=== PATIENT | female | born 1985 | race Caucasian/White ===

== ENCOUNTER 2020-10-07 19:16 | Observation (INO) | payer BC, OTHER ==
[2020-10-07] MEDS ORDERED: HEPARIN SODIUM,PORCINE 5,000 UNIT/ML 1 ML VIAL IV PRN (19:28)
[2020-10-07] MEDS ORDERED: HEPARIN SOD,PORK IN 0.45% NACL 25,000 UNIT in 0.45% NACL 1 250ML.BAG IV SCH (19:30)
--- NOTE | 2020-10-07 19:37 | ED ---
Extremity Problem HPI - General Chief complaint: Extremity Problem,Nontraumatic Stated complaint: R arm swelling Time Seen by Provider: 10/07/20 19:19 Source: patient Mode of arrival: EMS Limitations: no limitations - History of Present Illness Initial comments: 35 year-old female patient presents to the emergency department as a transfer for subclavian DVT. Patient states that she worked out her shoulders at the gym a couple of days ago. states she started having pain and swelling to the right arm. States it is mildly discolored. States she went to the hospital to have it evaluated had ultrasound and was diagnosed with a DVT. She was sent here for further evaluation by vascular surgery. Patient states that over the last week she has been more short of breath while working out. States that she is also been feeling "weaker". Denies any cough or congestion. Denies fever or chills. Denies history of blood clots. Denies use of hormonal medications or control. Patient denies any recent rash, fever, chills, chest pain, abdominal pain, nausea, vomiting, diarrhea, constipation, back pain, numbness, tingling, dizziness, hematuria, dysuria, urinary urgency, urinary frequency, headache, visual changes, or any other complaints. - Related Data Home Medications Medication Instructions Recorded Confirmed Levothyroxine Sodium [Synthroid] 100 mcg PO DAILY 08/26/15 10/07/20 ALPRAZolam [Xanax] 0.25 mg PO DAILY PRN 10/07/20 10/07/20 ARIPiprazole [Abilify] 5 mg PO DAILY 10/07/20 10/07/20 Lisdexamfetamine Dimesylate 50 mg PO QAM 10/07/20 10/07/20 [Vyvanse] Oxybutynin Chloride 5 mg PO TID PRN 10/07/20 10/07/20 Venlafaxine HCl ER [Effexor Xr] 150 mg PO DAILY 10/07/20 10/07/20 Allergies Allergy/AdvReac Type Severity Reaction Status Date / Time codeine Allergy Hallucinati Verified 10/07/20 19:20 ons Review of Systems ROS Statement: Those systems with pertinent positive or pertinent negative responses have been documented in the HPI. ROS Other: All systems not noted in ROS Statement are negative. Past Medical History Past Medical History: Thyroid Disorder Additional Past Medical History / Comment(s): anxiety History of Any Multi-Drug Resistant Organisms: None Reported Past Surgical History: No Surgical Hx Reported Past Anesthesia/Blood Transfusion Reactions: No Reported Reaction Past Psychological History: ADD/ADHD, Anxiety, Depression Smoking Status: Current every day smoker Past Alcohol Use History: Occasional Past Drug Use History: Marijuana - Past Family History Mother Family Medical History: No Reported History General Exam Limitations: no limitations General appearance: alert, in no apparent distress, other (this is a well- developed, well-nourished adult female patient in no acute distress.) ENT exam: Present: normal exam, normal oropharynx, mucous membranes moist Respiratory exam: Present: normal lung sounds bilaterally. Absent: respiratory distress, wheezes, rales, rhonchi, stridor Cardiovascular Exam: Present: regular rate, normal rhythm, normal heart sounds. Absent: systolic murmur, diastolic murmur, rubs, gallop, clicks GI/Abdominal exam: Present: soft, normal bowel sounds. Absent: distended, tenderness, guarding, rebound, rigid Neurological exam: Present: alert, oriented X3, CN II-XII intact Psychiatric exam: Present: normal affect, normal mood Skin exam: Present: warm, dry, intact, normal color. Absent: rash Course Vital Signs 10/07/20 10/07/20 19:21 20:05 Temperature 98.7 F Pulse Rate 96 92 Respiratory 18 18 Rate Blood Pressure 136/89 122/88 O2 Sat by Pulse 97 99 Oximetry Medical Decision Making - Medical Decision Making 35-year-old female patient presents to the emergency department today for evaluation after transfer from [facility] for DVT to the right subclavian. Physical examination did reveal generalized swelling to the right upper extremity, there is also reddish discoloration with delayed cap refill. Patient denied any pain to the extremity. Review of records from [facility] showed relatively normal lab values. As she did have ultrasound of the arm and showed a chronic DVT partially obstructing the right subclavian. Did perform CT chest angiography here due to increased shortness of breath over the last week and this was negative for pulmonary embolism. Patient is on high-dose heparin. To be admitted to the hospital for further evaluation by vascular tomorrow. Patient is agreeable with this plan. Case discussed with Dr. Thomas. - Radiology Data Radiology results: report reviewed, image reviewed ultrasound report from [facility] was reviewed and showed a partial occlusion of the right subclavian vein with chronic DVT CT chest angiography for pulmonary embolism was obtained. Report is reviewed in its entirety. Impression by Dr. Chavarria shows no evidence of pulmonary embolism. Negative exam. Disposition Clinical Impression: Right subclavian vein thrombosis Disposition: ADMITTED IP TO THIS [facility] Condition: Serious Referrals: Yuliya Mejia MD [Primary Care Provider] - 1-2 days Decision to Admit Reason: Admit from EC Decision Date: 10/07/20 Decision Time: 20:30
--- NOTE | 2020-10-07 20:17 | CT ---
EXAMINATION TYPE: CT chest angio for PE DATE OF EXAM: 10/07/2020 COMPARISON: None HISTORY: SOB, hx of subclavian DVT CT DLP: 242.8 mGycm Automated exposure control for dose reduction was used. CONTRAST: Performed with IV Contrast, patient injected with 54cc mL of Isovue 370. There are 3-D post processed images. The lungs are clear of infiltrate. There is no evidence of a pulmonary mass. There is no pleural effu missy. There is no pericardial effusion. Heart size is normal. Mediastinum is normal. There are no hil ar masses. Thoracic aorta is intact. There is no evidence of aneurysm or dissection. There is normal contrast opacification of the pulmonary arteries. There are no filling defects. The bony thorax is intact. IMPRESSION: No evidence of pulmonary embolism. Negative exam.
[2020-10-07] MEDS ORDERED: ONDANSETRON 4 MG/2 ML VIAL IVP PRN (20:28)
[2020-10-07] MEDS ORDERED: NALOXONE 0.4 MG/ML 1 ML VIAL IV PRN (20:28)
[2020-10-07] MEDS ORDERED: SODIUM CHLORIDE 0.9% 1,000 ML IV SCH (20:30)
[2020-10-07 23:51] VITALS: RESP 16
[2020-10-08 06:22] LABS: Basophils # (A) 0.1 k/uL (0-0.2); Basophils % (A) 1 %; Eosinophils # (A) 0.2 k/uL (0-0.7); Eosinophils % (A) 3 %; HCT 37.4 % (34.0-46.0); HGB 12.7 gm/dL (11.4-16.0); Lymphocytes # (A) 2.8 k/uL (1.0-4.8); Lymphocytes % (A) 42 %; MCH 32.3 pg (25.0-35.0); MCHC 34.1 g/dL (31.0-37.0); MCV 94.9 fL (80.0-100.0); Mean Platelet Volume 6.8; Monocytes # (A) 0.4 k/uL (0-1.0); Monocytes % (A) 6 %; Neutrophils # (A) 3.2 k/uL (1.3-7.7); Neutrophils % (A) 47 %; Platelet Count 274 k/uL (150-450); RBC 3.94 m/uL (3.80-5.40); RDW 11.6 % (11.5-15.5); WBC 6.7 k/uL (3.8-10.6)
[2020-10-08 07:07] VITALS: BP 119/81; PULSE 81; TEMP 98
[2020-10-08] MEDS ORDERED: OXYBUTYNIN CHLORIDE 5 MG TAB PO PRN (09:36)
[2020-10-08] MEDS ORDERED: VENLAFAXINE HCL ER 150 MG CAP PO SCH (09:45)
[2020-10-08] MEDS ORDERED: LEVOTHYROXINE 100 MCG TAB PO SCH (09:45)
[2020-10-08] MEDS ORDERED: ARIPiprazole 5 MG TAB PO SCH (09:45)
--- NOTE | 2020-10-08 09:56 | P.GSCN ---
History of Present Illness Consult date: 10/08/20 Reason for Consult: Subclavian DVT History of present illness: Disease 35-year-old female who presented to [facility] yesterda y for complaints of swelling of her right upper extremity. The patient states she had been working out regularly and Thursday was working out her upper extremity including her shoulders when she started noticing some swelling Thursday into Thursday. She states yesterday she had significant swelling with numbness and tingling down to her fingers. She denies any pain at any time. States she has full range of motion. She also stated she was having some shortness of breath while exercising, however states no shortness breath at this time or chest pain. She denies any previous surgeries, previous history of DVT, any family history of clotting disorders or personal history of clotting disorder. Her past medical history is significant for thyroid disorder as well as anxiety. She currently has full range of motion of bilateral upper extremities, denies any pain in her right upper extremity and states her numbness and tingling to her fingers and hand have improved. She is currently on a heparin drip. Review of Systems A 14 point review of systems was completed and all pertinent positives and negatives as stated in the HPI. Past Medical History Past Medical History: Thyroid Disorder Additional Past Medical History / Comment(s): anxiety History of Any Multi-Drug Resistant Organisms: None Reported Past Surgical History: No Surgical Hx Reported Past Anesthesia/Blood Transfusion Reactions: No Reported Reaction Past Psychological History: ADD/ADHD, Anxiety, Depression Additional Psychological History / Comment(s): medicated with zoloft Smoking Status: Current every day smoker Past Alcohol Use History: Occasional Past Drug Use History: Marijuana - Past Family History Mother Family Medical History: No Reported History Medications and Allergies Home Medications Medication Instructions Recorded Confirmed Type Levothyroxine Sodium [Synthroid] 100 mcg PO DAILY 08/26/15 10/07/20 History ALPRAZolam [Xanax] 0.25 mg PO DAILY PRN 10/07/20 10/07/20 History ARIPiprazole [Abilify] 5 mg PO DAILY 10/07/20 10/07/20 History Lisdexamfetamine Dimesylate 50 mg PO QAM 10/07/20 10/07/20 History [Vyvanse] Oxybutynin Chloride 5 mg PO TID PRN 10/07/20 10/07/20 History Venlafaxine HCl ER [Effexor Xr] 150 mg PO DAILY 10/07/20 10/07/20 History Apixaban [Eliquis] 10 mg PO BID #74 tab 10/08/20 Rx Allergies Allergy/AdvReac Type Severity Reaction Status Date / Time codeine Allergy Hallucinati Verified 10/07/20 19:20 ons Surgical - Exam Vital Signs Temp Pulse Resp BP Pulse Ox 98.7 F 96 18 136/89 97 10/07/20 19:21 10/07/20 19:21 10/07/20 19:21 10/07/20 19:21 10/07/20 19:21 General appearance: The patient is alert, oriented, in no acute distress. HET: Head is normocephalic and atraumatic. . Neck: Supple without lymphadenopathy. Trachea midline. Heart: S1 S2. Regular rate and rhythm. Lungs: No crackles or wheezes are heard. Abdomen: Soft, nontender, nondistended. Extremities: Normal skin color and turgor. Right upper extremity with swelling from the shoulder down to her wrist. She has full range of motion, good capillary refill with palpable radial pulse. Neurological: No focal deficits. Strength and sensation are grossly intact. Results Chest CTA without evidence of pulmonary embolism Ultrasound venous Doppler of right upper extremity done at [facility] shows some thrombus in the subclavian vein but not completely occluding the vein. This is consistent with some chronic deep vein thrombosis. There is no evidence of deep vein thrombosis in the arm. - Labs 10/08/20 05:33 Abnormal Lab Results - Last 24 Hours (Table) 10/07/20 10/08/20 Range/Units 23:39 05:33 APTT 56.6 H 65.3 H (22.0-30.0) sec Assessment and Plan Assessment: 1. Right subclavian DVT, not completely occluded 2. Hypothyroidism Plan: Agree with IV heparin drip. Consult for case management to see if Eliquis is covered and if covered will transition to Eliquis 10 mg twice a day 7 days then 5 mg twice a day. Patient is recommended to follow up with Dr. Wright next week for reevaluation of the right upper extremity. Consider outlet syndrome needed to the annulus workouts. Elevate right upper extremity, apply compression stocking to right upper extremity. Patient may be discharged home t jered if able to start oral anticoagulation. Thank you for this consultation allowing us take part in the plan of care of your patient during her hospital stay. The above dictated assessment and findings were discussed with Dr. Wright. The impression and plan of care have been directed as dictated.
[2020-10-08] MEDS ORDERED: APIXABAN 5 MG TAB PO SCH (10:30)
--- NOTE | 2020-10-08 12:42 | P.HPIM ---
History of Present Illness 30-year-old pleasant female presented to [facility] with swelling of the left thumb without any significant pain and was subsequently transferred here for management of DVT of right upper extremity. Patient was also having so mething name numbness in her fingers on the right upper extremity which improved at this time. Patient denied any fever chills. Patient the does workout on regular basis was working out with that arm yesterday. Patient denied any history of cancer does have family history of breast cancer in her grandmother in her 40s patient is not on oral contraceptive pills patient's BMI is only 23.3 denied any family history of clotting disorders. Never had any DVTs in the past. Review of Systems REVIEW OF SYSTEMS: CONSTITUTIONAL: No fever, no malaise, no fatigue. HEENT: No recent visual problems or hearing problems. Denied any sore throat. CARDIOVASCULAR: No chest pain, orthopnea, PND, no palpitations, no syncope. PULMONARY: No shortness of breath, no cough, no hemoptysis. GASTROINTESTINAL: No diarrhea, no nausea, no vomiting, no abdominal pain. NEUROLOGICAL: No headaches, no weakness, no numbness. HEMATOLOGICAL: Denies any bleeding or petechiae. GENITOURINARY: Denies any burning micturition, frequency, or urgency. MUSCULOSKELETAL/RHEUMATOLOGICAL: Denies any joint pain, swelling, or any muscle pain. ENDOCRINE: Denies any polyuria or polydipsia. The rest of the 14-point review of systems is negative. Past Medical History Past Medical History: Thyroid Disorder Additional Past Medical History / Comment(s): anxiety History of Any Multi-Drug Resistant Organisms: None Reported Past Surgical History: No Surgical Hx Reported Past Anesthesia/Blood Transfusion Reactions: No Reported Reaction Past Psychological History: ADD/ADHD, Anxiety, Depression Additional Psychological History / Comment(s): medicated with zoloft Smoking Status: Current every day smoker Past Alcohol Use History: Occasional Past Drug Use History: Marijuana - Past Family History Mother Family Medical History: No Reported History Medications and Allergies Home Medications Medication Instructions Recorded Confirmed Type Levothyroxine Sodium [Synthroid] 100 mcg PO DAILY 08/26/15 10/07/20 History ALPRAZolam [Xanax] 0.25 mg PO DAILY PRN 10/07/20 10/07/20 History ARIPiprazole [Abilify] 5 mg PO DAILY 10/07/20 10/07/20 History Lisdexamfetamine Dimesylate 50 mg PO QAM 10/07/20 10/07/20 History [Vyvanse] Oxybutynin Chloride 5 mg PO TID PRN 10/07/20 10/07/20 History Venlafaxine HCl ER [Effexor Xr] 150 mg PO DAILY 10/07/20 10/07/20 History Apixaban [Eliquis] 10 mg PO BID #74 tab 10/08/20 Rx Allergies Allergy/AdvReac Type Severity Reaction Status Date / Time codeine Allergy Hallucinati Verified 10/07/20 19:20 ons Physical Exam Vitals: Vital Signs Temp Pulse Pulse Pulse Resp BP BP 10/08/20 07:02 98.0 F 81 16 119/81 10/08/20 01:36 84 16 10/08/20 01:32 98.2 F 84 16 111/70 10/07/20 21:48 98.1 F 72 16 122/73 10/07/20 20:52 98.2 F 92 18 138/95 10/07/20 20:05 92 18 122/88 10/07/20 19:21 98.7 F 96 18 136/89 Pulse Ox 10/08/20 07:02 99 10/08/20 01:36 10/08/20 01:32 99 10/07/20 21:48 98 10/07/20 20:52 98 10/07/20 20:05 99 10/07/20 19:21 97 Intake and Output 10/07/20 10/08/20 10/08/20 22:59 06:59 14:59 Intake Total 409.915 Balance 409.915 Intake: Intake, IV Titration 209.915 Amount Heparin Sod,Pork in 0.45% 49.915 NaCl 25,000 unit In 0.45 % NaCl 1 250ml.bag @ 18 UNITS/KG/HR 11.431 mls/hr IV .[id number] REG Rx#: [id number] Sodium Chloride 0.9% 1, 160 000 ml @ 20 mls/hr IV . Q24H REG Rx#:[id number] Oral 200 Other: Voiding Method Toilet # Voids 2 Weight 63.503 kg PHYSICAL EXAMINATION: GENERAL: The patient is alert and oriented x3, not in any acute distress. Well developed, well nourished. HEENT: Pupils are round and equally reacting to light. EOMI. No scleral icterus. No conjunctival pallor. Normocephalic, atraumatic. No pharyngeal erythema. No thyromegaly. CARDIOVASCULAR: S1 and S2 present. No murmurs, rubs, or gallops. PULMONARY: Chest is clear to auscultation, no wheezing or crackles. ABDOMEN: Soft, nontender, nondistended, normoactive bowel sounds. No palpable organomegaly. MUSCULOSKELETAL: No joint swelling or deformity. EXTREMITIES: No cyanosis, clubbing, significantly swollen right upper extremity with redness NEUROLOGICAL: Gross neurological examination did not reveal any focal deficits. SKIN: No rashes. Results CBC & Chem 7: 10/08/20 05:33 Labs: Abnormal Lab Results - Last 24 Hours (Table) 10/07/20 10/08/20 Range/Units 23:39 05:33 APTT 56.6 H 65.3 H (22.0-30.0) sec Thrombosis Risk Factor Assmnt - Choose All That Apply Any of the Below Risk Factors Present?: No Other Risk Factors: Yes Each Risk Factor Represents 3 Points: History of DVT/PE Thrombosis Risk Factor Assessment Total Risk Factor Score: 3 Thrombosis Risk Factor Assessment Level: Moderate Risk Assessment and Plan Plan: -DVT in the right subclavian: Patient will be discharged on Eliquis. -Ruled out pulmonary embolism. Etiology of her DVT is not clear. Patient will follow with vascular surgery as an outpatient patient will be evaluated for breath thoracic outlet syndrome -hyperthyroidism -Anxiety disorder, ADHD -Nicotine use/marijuana use: Counseling was provided will be discharged today with follow-up with vascular surgery and primary care physician as an outpatient
--- NOTE | 2020-10-08 12:42 | P.DS ---
Providers Date of admission: 10/07/20 20:27 Attending physician: Fidel Dumont Consults: 10/07/20 20:28 Consult Physician Routine Consulting Provider: Caleb Brody Consult Reason/Comments: Right subclavian DVT Do you want consulting provider notified?: Yes Primary care physician: Yuliya Mejia Hospital Course: Refer to my history of present illness for further details Patient Condition at Discharge: Serious Plan - Discharge Summary Discharge Rx Participant: Yes New Discharge Prescriptions: New Apixaban [Eliquis] 10 mg PO BID #74 tab No Action Levothyroxine Sodium [Synthroid] 100 mcg PO DAILY Oxybutynin Chloride 5 mg PO TID PRN PRN Reason: BLADDER ISSUES ALPRAZolam [Xanax] 0.25 mg PO DAILY PRN PRN Reason: Anxiety Venlafaxine HCl ER [Effexor Xr] 150 mg PO DAILY Lisdexamfetamine Dimesylate [Vyvanse] 50 mg PO QAM ARIPiprazole [Abilify] 5 mg PO DAILY Discharge Medication List Levothyroxine Sodium [Synthroid] 100 mcg PO DAILY 08/26/15 [History] ALPRAZolam [Xanax] 0.25 mg PO DAILY PRN 10/07/20 [History] ARIPiprazole [Abilify] 5 mg PO DAILY 10/07/20 [History] Lisdexamfetamine Dimesylate [Vyvanse] 50 mg PO QAM 10/07/20 [History] Oxybutynin Chloride 5 mg PO TID PRN 10/07/20 [History] Venlafaxine HCl ER [Effexor Xr] 150 mg PO DAILY 10/07/20 [History] Apixaban [Eliquis] 10 mg PO BID #74 tab 10/08/20 [Rx] Follow up Appointment(s)/Referral(s): Franklin Wright DO [STAFF PHYSICIAN] - 10/16/20 3:15 pm Yuliya Mejia MD [Primary Care Provider] - 10/10/20 8:30 am Patient Instructions/Handouts: Deep Vein Thrombosis (DC) Discharge Disposition: HOME SELF-CARE
== END 2020-10-08 11:43 | disposition home or self-care (01) ==
LOC: EC 19:16 → 6NMEDSUR 20:27
PROVIDERS: ADMIT Hospitalist; ATTEND Hospitalist
DX: I82.B21 Chronic embolism and thrombosis of right subclavian vein (principal); R06.02 Shortness of breath; E03.9 Hypothyroidism, unspecified; F41.9 Anxiety disorder, unspecified; F32.9 Major depressive disorder, single episode, unspecified; F90.9 Attention-deficit hyperactivity disorder, unspecified type; F17.200 Nicotine dependence, unspecified, uncomplicated; F12.90 Cannabis use, unspecified, uncomplicated; Z79.890 Hormone replacement therapy; Z79.899 Other long term (current) drug therapy; Z88.5 Allergy status to narcotic agent; Z80.3 Family history of malignant neoplasm of breast
CPT/HCPCS: 96366 ×3; 96365; 99285; 85025; 85730 ×2; 87635; 71275; G0378 ×2; Q9967; J1644